=== PATIENT | male | born 1980 | race Hispanic/Latino ===

== ENCOUNTER 2020-01-03 04:37 | Emergency (ER) | payer BC ==
[2020-01-03 05:33] LABS: BASOPHILS % (AUTO) 0.5 % (0.0-5.0); EOSINOPHILS % (AUTO) 1.4 % (0.0-8.0); HEMATOCRIT 38.2 % (42-54); MEAN CORPUSCULAR HEMOGLOBIN 32.2 pg (27.0-33.0); MEAN CORPUSCULAR HGB CONC 34.3 g/dL (32.0-36.0); MEAN CORPUSCULAR VOLUME 93.9 fL (79-99); MONOCYTES % (AUTO) 6.6 % (3.0-13.0); NEUTROPHILS % (AUTO) 80.2 % (40.0-77.0); PLATELET COUNT (AUTO) 268 K/uL (130-400); RED BLOOD CELL COUNT(AUTO) 4.07 MIL/uL (4.50-6.20); RED CELL DISTRIBUTION WIDTH 11.7 % (11.0-15.5); WHITE BLOOD COUNT (AUTO) 9.5 K/uL (4.8-10.8)
[2020-01-03 05:52] LABS: CREATININE 1.1 mg/dL (0.5-1.5)
[2020-01-03 06:00] LABS: ALBUMIN 3.7 g/dL (3.5-5.0); BILIRUBIN,TOTAL 0.2 mg/dL (0.2-1.0); CRP QUANTITATIVE 9.8 mg/L (0.00-9.0); TOTAL PROTEIN, SERUM 7.7 g/dL (6.0-8.3)
[2020-01-03 06:41] LABS: ERYTHROCYTE SEDIMENTATION RATE 5 MM/HR (0-15)
[2020-01-03] MEDS ORDERED: POTASSIUM CHLORIDE 10% ELIXIR 20 MEQ/15 ML UDCUP ONE (07:14)
== END 2020-01-03 09:40 | disposition home or self-care (01) ==
LOC: EDH 04:37
DX: E87.6 Hypokalemia (principal); G25.1 Drug-induced tremor; R20.2 Paresthesia of skin; M06.9 Rheumatoid arthritis, unspecified
CPT/HCPCS: 36415; 80053; 85025; 85651; 86140

== ENCOUNTER → 2020-08-01 | Outpatient (CLI) | payer BC | END | disposition home or self-care (01) | LOC: OIH 13:32 | PROVIDERS: ATTEND Internal Medicine | DX: M19.041 Primary osteoarthritis, right hand (principal); M19.042 Primary osteoarthritis, left hand; M19.071 Primary osteoarthritis, right ankle and foot; M19.072 Primary osteoarthritis, left ankle and foot | CPT/HCPCS: 73630 ==